=== PATIENT | female | born 1965 | race Hispanic/Latino ===

== ENCOUNTER 2021-06-18 09:11 | Outpatient (CLI) | payer MEDICAID ==
[2021-06-18 10:18] LABS: Blood Urea Nitrogen 12 mg/dL (7-17)
--- NOTE | 2021-06-18 12:23 | Cat Scan Report ---
CTA ABDOMEN, PELVIS, AND LOWER EXTREMITIES INDICATION: ABDOMINAL AORTIC ANEURYSM 80 ml omni 350 . TECHNIQUE: Axial CT images were obtained through the abdomen, pelvis and lower extremities after injection of IV contrast. 3 plane MIP reconstructions were produced. All CT scans at this location are performed usi ng CT dose reduction for PRISCILARA by means of automated exposure control. COMPARISON: None available. FINDINGS: CTA ABDOMEN: Abdominal Aorta: There is mild mural plaque throughout the infrarenal abdominal aorta. On axial image 191, transverse dimensions of the infrarenal abdominal aorta are 2.5 (AP) by 2.7 cm. Just below this , there is somewhat focal outpouching along the right anterolateral aspect of the aorta as seen on ax ial image 201). There is moderate to high-grade stenosis at the bifurcation (axial image 213). Celiac Artery: No significant abnormality. Superior Mesenteric Artery: No significant abnormality. Right Renal Artery: There is high-grade stenosis at the origin of the right renal artery (axial image 142). Left Renal Artery: No significant abnormality. Inferior Mesenteric Artery: Chronically thrombosed. CTA PELVIS: RIGHT: Common Iliac Artery: Advanced atherosclerotic disease with moderate narrowing and chronic focal disse ction (axial image 234). Internal Iliac Artery: Moderate atherosclerotic disease External Iliac Artery: No significant abnormality. LEFT: Common Iliac Artery: Moderate atherosclerotic disease with tiny chronic focal dissection on image 220 . Internal Iliac Artery: Moderate atherosclerotic disease. External Iliac Artery: No significant abnormality. CTA LOWER EXTREMITIES: RIGHT LOWER EXTREMITY: Common Femoral Artery: Mild to moderate atherosclerotic disease. Superficial Femoral Artery: Chronically thrombosed throughout. Profunda Femoral Artery: No significant abnormality. Popliteal Artery: Chronically thrombosed proximally with reconstitution in the midportion. Anterior Tibial Artery: No significant abnormality. Tibioperoneal Trunk: No significant abnormality. Posterior Tibial Artery: No significant abnormality. Peroneal Artery: No significant abnormality. Ankle runoff: Three vessel. LEFT LOWER EXTREMITY: Common Femoral Artery: Moderate atherosclerotic disease. Superficial Femoral Artery: Chronically thrombosed throughout. Profunda Femoral Artery: No significant abnormality. Popliteal Artery: Reconstituted at its origin. Anterior Tibial Artery: No significant abnormality. Tibioperoneal Trunk: No significant abnormality. Posterior Tibial Artery: No significant abnormality. Peroneal Artery: No significant abnormality. Ankle runoff: Three vessel. NONTARGET STRUCTURES: LUNG BASES: There is a 5 mm nodule in the subpleural anterior right middle lobe on axial image 26. ABDOMEN:There is a 3.2 cm hypodense lesion in the left abdomen which appears to be adrenal in etiolog y (axial image 113). There is a fat-containing umbilical hernia. PELVIS:No significant abnormality. LOWER EXTREMITIES:No significant abnormality. SKELETAL: No significant abnormality. ADDITIONAL FINDINGS: None. IMPRESSION: 1. There is moderate atherosclerotic disease and mild ectasia of the infrarenal abdominal aorta. Just below the area of ectasia, there is focal, chronic outpouching along the right anterolateral aspect of the aorta which may be a small chronic focal dissection. Bifurcation, there is moderate to high-gr tyrone stenosis. 2. Atherosclerotic disease is noted within the bilateral common iliac arterial trees with moderate at herosclerotic narrowing and areas of chronic dissection at the bilateral common iliacs as above. 3. 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 4. High-grade stenosis at the origin of the main right renal artery. 5. 3.2 cm hypodense lesion in the left abdomen appears to be adrenal in etiology. This may be an syl daniel but is nonspecific. 6. Single incidental pulmonary nodule(s) in the right middle lobe measuring 5 mm with solid character istics. - Recommendation according to Fleischner Society 2017 Guidelines: Low Risk Patient: No routine follow -up; High Risk Patient: Optional CT at 12 months. Signer Name: Raymon Miller MD Signed: 06/18/2021 12:19 PM Workstation Name: [id number]
== END 2021-06-18 09:12 | disposition home or self-care (01) ==
LOC: CT 09:11
PROVIDERS: ATTEND Internal Medicine
DX: I70.213 Atherosclerosis of native arteries of extremities with intermittent claudication, bilateral legs (principal); I71.4 Abdominal aortic aneurysm, without rupture; I70.8 Atherosclerosis of other arteries; I65.23 Occlusion and stenosis of bilateral carotid arteries; R91.1 Solitary pulmonary nodule; I77.811 Abdominal aortic ectasia
CPT/HCPCS: 36415; 75635; 82565; 84520; Q9967

== ENCOUNTER 2021-07-27 08:04 | Day surgery (SDC) | payer MEDICAID ==
[2021-07-27] MEDS ORDERED: SODIUM CHLORIDE 0.9% 500 ML 500 ML IV SCH (09:00)
[2021-07-27 09:47] LABS: BUN/Creatinine Ratio 18; Blood Urea Nitrogen 11 mg/dL (7-17); Calcium 10.2 mg/dL (8.4-10.2); Hemolysis Index 11; INR 0.91 (0.87-1.13)
[2021-07-27 09:48] LABS: Partial Thromboplastin Time 31.2 Sec. (24.2-36.6)
[2021-07-27 10:00] LABS: Hematocrit 40.8 % (30.3-42.9); Hemoglobin 13.6 gm/dl (10.1-14.3); Mean Corpuscular HGB Conc 33 % (30-34); Mean Corpuscular Volume 91 fl (79-97); Platelet Count 440 K/mm3 (140-440); Red Blood Count 4.51 M/mm3 (3.65-5.03); Red Cell Distribution Width 14.6 % (13.2-15.2)
[2021-07-27] MEDS ORDERED: HEPARIN/NS 5000 UNIT/500ML 1,000 ML IR ONE (11:10)
[2021-07-27] MEDS ORDERED: LIDOCAINE (2%) 20 MG/1 ML VIAL 20 ML MDV INFILTRATI ONE ×2 (11:10→12:13)
[2021-07-27] MEDS ORDERED: ceFAZolin/Water 2 GM/20 ML 2 GM/20 ML SYRINGE IV ONE (11:34)
[2021-07-27] MEDS: fentaNYL 100 MCG/2 ML INJ ONE ×5 (11:35→13:30)
[2021-07-27] MEDS: MIDAZOLAM 2 MG/2 ML INJ ONE ×5 (11:35→13:30)
[2021-07-27] MEDS ORDERED: VERAPAMIL 5 MG/2 ML INJ ONE (12:03)
[2021-07-27] MEDS ORDERED: NITROGLYCERIN SYRINGE 3 ML ONE (12:04)
[2021-07-27] MEDS: HEPARIN 10,000 UNITS/10 ML VIAL ONE ×3 (12:10→12:55)
[2021-07-27] MEDS ORDERED: SODIUM CHLORIDE 0.9% 1000 ML 1,000 ML ONE (12:26)
[2021-07-27] MEDS: diphenhydrAMINE 50 MG/ML VIAL ONE ×2 (12:38→12:51)
[2021-07-27] MEDS ORDERED: ONDANSETRON 4 MG/2 ML INJ ONE (14:05)
[2021-07-27] MEDS ORDERED: HYDROcodone/ACETAMINOPHEN 5-325 MG TAB PO NR (14:11)
[2021-07-27] MEDS ORDERED: ONDANSETRON 4 MG/2 ML INJ IV PRN (14:30)
[2021-07-27] MEDS ORDERED: CLOPIDOGREL 300 MG TAB ONE (14:49)
[2021-07-27] MEDS ORDERED: CLOPIDOGREL 300 MG TAB PO ONE (14:51)
--- NOTE | 2021-07-27 14:54 | Short Stay Summary ---
Short Stay Documentation Date of service: 07/27/21 - History H&P: obtained from office - Allergies and Medications Current Medications: Allergies aspirin Allergy (Verified 07/27/21 11:29) UPSET STOMACH Sulfa (Sulfonamide Antibiotics) Allergy (Verified 07/27/21 11:29) Hives Active Medications Hydrocodone Bitart/Acetaminophen (Hydrocodone/Acetaminophen 5-325 Mg Tab) 1 each PO ONCE NR Stop: 07/27/21 15:00 Sodium Chloride (Nacl 0.9% 500 Ml) 500 mls @ 50 mls/hr IV DIRECT MILLIE Last Admin: 07/27/21 10:45 Dose: 50 mls/hr Documented by: Ondansetron HCl (Ondansetron 4 Mg/2 Ml Inj) 4 mg IV Q4H PRN PRN Reason: Nausea And Vomiting Last Admin: 07/27/21 14:10 Dose: 4 mg Documented by: - Brief post op/procedure progress note Date of procedure: 07/27/21 Pre-op diagnosis: PVD with Bilateral Lower Extremity Pain Post-op diagnosis: same Procedure: 1. Ultrasound Guided Access Right Common Femoral Artery 2. Diagnostic Aortogram (No Previous Films for Comparison) 3. Diagnostic Left Lower Extremity Angiogram (No Previous Films for Comparison) 4. Ultrasound Guided Access Left Posterior Tibial Artery 5. Atherectomy with Angioplasty of Left SFA and Popliteal Artery with 2.4/3.4 JetStream Atherectomy Catheter, 5.0 x 200 Angiosculpt Balloon, and 5.0 x 150 IN.PACT Drug-Coated Balloon (x3) 6. Angioplasty of Left External Ilioac Artery with 8 x 100 [place] Balloon 7. Angioplasty of Letf Common Iliac Artery with 8 x 100 [place] Balloon 8. Closure of Right Femoral Arteriotomy with Pro-[place] Closure Device 9. Radiologic Supervision with Interpretation 10. Monitored Moderate Sedation (Total Anesthesia Time: 111 Minutes) Anesthesia: local, other (Mointored Moderate Sedation) Surgeon: BRENDA RAPHAEL Estimated blood loss: minimal Pathology: none Condition: stable - Disposition Condition at discharge: Good Disposition: 01 HOME / SELF CARE / HOMELESS Short Stay Discharge Plan Activity: other (No strenuous activity for 24 hours) Wound: remove dressing (In 24 hours), other (Okay to shower and wash the wounds with soap and water but do not soak the wounds in water fro 2 weeks) Follow up with: BRENDA RAPHAEL MD [Staff Physician] - 14 Days Prescriptions: Clopidogrel [Plavix] 75 mg PO QDAY #90 tablet
--- NOTE | 2021-07-27 14:59 | Operative Report ---
Operative Report Operative Report: Date of Procedure: 07/27/2021 Pre-operative Diagnosis: Peripheral Vascular Disease with Bilateral Lower Extrem ity Claudication Post-operative Diagnosis: Same Procedure(s): 1. Ultrasound Guided Access Right Common Femoral Artery 2. Diagnostic Aortogram (No Previous Films for Comparison) 3. Diagnostic Left Lower Extremity Angiogram (No Previous Films for Comparison) 4. Ultrasound Guided Access Left Posterior Tibial Artery 5. Atherectomy with Angioplasty of Left SFA and Popliteal Artery with 2.4/3.4 JetStream Atherectomy Catheter, 5.0 x 200 Angiosculpt Balloon, and 5.0 x 150 IN.PACT Drug-Coated Balloon (x3) 6. Angioplasty of Left External Iliac Artery with 8 x 100 [place] Balloon 7. Angioplasty of Left Common Iliac Artery with 8 x 100 [place] Balloon 8. Closure of Right Femoral Arteriotomy with Pro-[place] Closure Device 9. Radiologic Supervision with Interpretation 10. Monitored Moderate Sedation (Total Anesthesia Time: 111 Minutes) Surgeon: Cristóbal Mercedes M.D. Budget Engineer: [place] Anesthesia: Local/Monitored Moderate Sedation EBL: Minimal Counts: Correct Complications: None Condition: Stable Specimen: None Indication: Patient is a 55-year-old female with a history of tobacco abuse, rheumatoid arthritis, and Raynaud's disease who presented with complaints of short distance claudication. She had a CTA with bilateral lower extremity runoff that demonstrated severe aortoiliac occlusive disease as well as a penetrating ulcer of the distal aorta. Additionally she had bilateral SFA occlusions. She is in need of a diagnostic angiogram with possible intervention to help with her symptoms. She has been given the risk, benefits, and alternative procedures and consented to the procedure. Angiographic Findings: Diagnostic aortogram revealed aneurysmal dilatation of the distal aorta. The diagnostic left lower extremity angiogram revealed approximately 75% stenosis of the common iliac artery. The hypogastric artery was patent without significant flow-limiting stenosis. There was approximately 75 to 80% stenosis of the external iliac artery. The common femoral artery was patent without evidence of flow-limiting stenosis. The profunda artery was patent without evidence of flow-limiting stenosis. The SFA occluded shortly after its origin with reconstitution at the origin of the popliteal artery. There was approximately 75% stenosis in the popliteal artery at the level of the knee and the remainder the popliteal artery below the knee was patent without significant flow-limiting stenosis. The patient had three-vessel runoff and all vessels appeared to be patent without significant flow-limiting stenosis. After intervention the common iliac artery and external iliac artery were patent with less than 15% residual stenosis. The SFA and popliteal artery were patent with less than 10% residual stenosis. Description of Procedure: The patient was brought to the [facility] and laid in supine position. After timeout was performed her right groin was prepped and draped in normal sterile fashion. Ultrasound was used to identify the the right common femoral artery and confirm patency. Once patency was confirmed the overlying skin and soft tissue was anesthetized with lidocaine. An 11 blade was used to make a small stab incision and then a curved hemostat was used to bluntly dissect down to the anterior surface of the right common femoral artery under ultrasound guidance. A 21-gauge micropuncture needle was used with ultrasound guidance to enter the right common femoral artery and a 0.018 micropuncture wire was advanced into the artery. The needle was removed and a micropuncture sheath was placed by Seldinger technique. The inner dilator and wire were removed and a 0.035 Bentson wire was advanced to the aorta. The micropuncture sheath was exchanged for 5 Brazilian sheath by Seldinger technique. An Omni Flush catheter was advanced into the aorta and after removing the wire diagnostic aortogram was performed with the previously described findings. I reinserted the Bentson wire and advanced the catheter wire up and over the bifurcation and performed a diagnostic left lower extremity angiogram with the previously described findings. I advanced the Bentson wire to the profunda artery and then exchanged the 5 Brazilian sheath for a 7 Brazilian 45 cm destination sheath by Seldinger technique. I then systemically heparinized the patient with 4000 units of heparin IV. I then used ultrasound to identify the left posterior tibial artery and used lidocaine to anesthetize the skin and soft tissue overlying the artery. I used a 21-gauge micropuncture needle with ultrasound guidance to access the artery in retrograde fashion and then advanced a 0.018 micropuncture wire into the artery. I then placed a 6 Brazilian glide slender sheath into the artery and then injected a radial cocktail into the artery to minimize spasm. I then used a Navicross catheter and 0.018 Gladius Wire and was able to advance the wire and catheter through the occluded SFA and reenter in the left common femoral artery. I then was able to use the catheter and wire to cannulate the 7 Brazilian sheath and advanced the catheter and wire out of the right femoral arteriotomy and grabbed the wire. I then remove the Navicross catheter and advanced it antegra de over the wire and into the distal posterior tibial artery. I removed the Gladius Wire and advanced the 0.014 Thruway Wire into the distal posterior tibial artery and then used a 2.4/3.4 Jetstream Atherectomy Catheter with both blades down and blades up to perform atherectomy of the SFA and proximal mid popliteal artery. After performing atherectomy I used a 5.0 x 200 Angiosculpt Balloon to perform angioplasty of the SFA and popliteal artery followed by angioplasty of both the SFA and popliteal artery with 5.0 x 150 IN.PACT Drug- Coated Balloons (x3). This resulted in less than 10% residual stenosis throughout both the SFA and popliteal arteries. I then exchanged my Thruway wire for the Bentson wire and performed a low pressure inflation of both the external iliac artery and common iliac artery with an 8 x 10 [place] Balloon. The maximum pressure with an external iliac artery as well as the common iliac artery was 2 danni. This resulted in less than 15% residual stenosis within both vessels. At that point I pulled the sheath back into the right external iliac artery and advanced the wire into the aorta. I then used a Pro-glide closure device to close the right femoral arteriotomy after removing the sheath. A sterile dressing was then applied to the right groin entry site. The sheath was then removed from the left posterior tibial artery and manual pressure was held to achieve hemostasis. Once hemostasis was achieved a sterile dressing was applied and the patient was transported to the recovery area in stable condition.
[2021-07-27 17:09] VITALS: BP 105/75
== END 2021-07-27 16:00 | disposition home or self-care (01) ==
LOC: CATHLABREC 08:04
PROVIDERS: ATTEND Surgery Vascular Surgery
DX: I70.203 Unspecified atherosclerosis of native arteries of extremities, bilateral legs (principal); I10 Essential (primary) hypertension; E78.00 Pure hypercholesterolemia, unspecified; E03.9 Hypothyroidism, unspecified; K21.9 Gastro-esophageal reflux disease without esophagitis; M19.90 Unspecified osteoarthritis, unspecified site; F17.210 Nicotine dependence, cigarettes, uncomplicated; Z79.899 Other long term (current) drug therapy; Z98.890 Other specified postprocedural states; Z88.2 Allergy status to sulfonamides; Z88.8 Allergy status to other drugs, medicaments and biological substances
CPT/HCPCS: 36415; 37220; 37222; 37225; 75625; 75710; 76937; 80048; 85025; 85610; 85730; 99156; 99157; C1724; C1725; C1760; C1769; C1887; C1894; C2623; J0690; J1200; J1644; J2250; J2405; J3010; J7030; J7040; Q9967

== ENCOUNTER 2021-08-10 07:46 | Day surgery (SDC) | payer MEDICAID ==
[2021-08-10] MEDS ORDERED: HEPARIN/NS 5000 UNIT/500ML 1,000 ML IR ONE ×2 (08:26→10:05)
[2021-08-10] MEDS: fentaNYL 100 MCG/2 ML INJ ONE ×9 (08:28→12:37)
[2021-08-10] MEDS: MIDAZOLAM 2 MG/2 ML INJ ONE ×8 (08:29→12:00)
[2021-08-10] MEDS: LIDOCAINE (2%) 20 MG/1 ML VIAL 20 ML MDV INFILTRATI ONE ×4 (08:29→11:46)
[2021-08-10 08:30] LABS: Basophils # (Auto) 0.2 K/mm3 (0.0-0.1); Basophils % (Auto) 1.5 % (0.0-1.8); Eosinophils # (Auto) 0.2 K/mm3 (0.0-0.4); Eosinophils % (Auto) 1.4 % (0.0-4.3); Hematocrit 36.5 % (30.3-42.9); Hemoglobin 12.2 gm/dl (10.1-14.3); Lymphocytes # (Auto) 4.5 K/mm3 (1.2-5.4); Lymphocytes % (Auto) 33.5 % (13.4-35.0); Mean Corpuscular HGB Conc 34 % (30-34); Mean Corpuscular Volume 89 fl (79-97); Monocytes # (Auto) 0.9 K/mm3 (0.0-0.8); Monocytes % (Auto) 6.4 % (0.0-7.3); Platelet Count 529 K/mm3 (140-440); Red Blood Count 4.08 M/mm3 (3.65-5.03); Red Cell Distribution Width 13.7 % (13.2-15.2)
[2021-08-10 08:43] LABS: Blood Urea Nitrogen 14 mg/dL (7-17); Calcium 10.1 mg/dL (8.4-10.2); Hemolysis Index 1
[2021-08-10 08:44] LABS: BUN/Creatinine Ratio 20
[2021-08-10] MEDS ORDERED: SODIUM CHLORIDE 0.9% 500 ML 500 ML IV SCH (09:00)
[2021-08-10] MEDS ORDERED: ceFAZolin/Water 2 GM/20 ML 2 GM/20 ML SYRINGE IV ONE (09:15)
[2021-08-10] MEDS: diphenhydrAMINE 50 MG/ML VIAL ONE ×2 (09:28→09:54)
[2021-08-10 09:36] LABS: INR 0.93 (0.87-1.13)
[2021-08-10] MEDS: HEPARIN 10,000 UNITS/10 ML VIAL ONE ×2 (09:50→10:27)
[2021-08-10] MEDS ORDERED: HEPARIN 10,000 UNITS/10 ML VIAL ONE (10:05)
[2021-08-10] MEDS: VERAPAMIL 5 MG/2 ML INJ ONE ×2 (10:14→10:27)
[2021-08-10] MEDS: NITROGLYCERIN SYRINGE 3 ML ONE ×2 (10:15→10:27)
[2021-08-10] MEDS ORDERED: WATER FOR INJ Sterile (PF) 10 ML ONE (10:41)
[2021-08-10] MEDS ORDERED: ALTEPLASE 2 MG INJ ONE (10:42)
[2021-08-10] MEDS ORDERED: SODIUM CHLORIDE 0.9% 1000 ML 1,000 ML ONE (10:46)
[2021-08-10] MEDS ORDERED: NITROGLYCERIN SYRINGE 3 ML ONE (10:46)
[2021-08-10] MEDS ORDERED: SODIUM CHLORIDE 0.9% 500 ML 500 ML ONE (11:48)
[2021-08-10] MEDS ORDERED: oxyCODONE /ACETAMINOPHEN 5-325MG TAB ONE (13:14)
[2021-08-10] MEDS ORDERED: oxyCODONE /ACETAMINOPHEN 5-325MG TAB PO ONE (13:15)
--- NOTE | 2021-08-10 13:38 | Short Stay Summary ---
Short Stay Documentation Date of service: 08/10/21 Narrative H&P: See Short stay record - Allergies and Medications Current Medications: Allergies aspirin Allergy (Verified 07/27/21 11:29) UPSET STOMACH Sulfa (Sulfonamide Antibiotics) Allergy (Verified 07/27/21 11:29) Hives Home Medications Medication Instructions Recorded Confirmed Last Taken Type Clopidogrel [Plavix] 75 mg PO QDAY #90 tablet 07/27/21 08/10/21 08/09/21 Rx 75 mg Adalimumab [Humira(Cf) Pen] 40 mg SQ Q2W 08/10/21 08/10/21 08/04/21 History 40 mg Ergocalciferol (Vitamin D2) 1 cap PO QWEEK 08/10/21 08/10/21 08/07/21 History [Drisdol] 1 cap Fenofibrate,Micronized 67 mg PO DAILY 08/10/21 08/10/21 08/09/21 History [Fenofibrate] 67 mg Levothyroxine [Synthroid] 50 mcg PO DAILY 08/10/21 08/10/21 08/09/21 History 50 mcg Pantoprazole [Protonix TAB] 20 mg PO DAILY 08/10/21 08/10/21 08/09/21 History 20 mg Prednisone [predniSONE (John) ER 5 mg PO HS 08/10/21 08/10/21 08/09/21 History TAB] 5 mg amLODIPine 10 mg PO DAILY 08/10/21 08/10/21 08/09/21 History 10 mg cilostazoL [Pletal] 100 mg PO DAILY 08/10/21 08/10/21 08/09/21 History 100 mg lisinopriL [Lisinopril] 20 mg PO DAILY 08/10/21 08/10/21 08/09/21 History 20 mg oxyCODONE /ACETAMINOPHEN [Percocet 1 tab PO PRN PRN 08/10/21 08/10/21 08/07/21 History 5/325 mg] 1 tab Active Medications Sodium Chloride (Nacl 0.9% 500 Ml) 500 mls @ 50 mls/hr IV DIRECT MILLIE Last Admin: 08/10/21 08:31 Dose: 1,000 mls Documented by: Oxycodone/Acetaminophen (Oxycodone /Acetaminophen 5-325mg Tab) 1 tab PO ONCE ONE Stop: 08/10/21 13:16 - Brief post op/procedure progress note Date of procedure: 08/10/21 Pre-op diagnosis: Peripheral Vascular Disease with Right Lower Extremity Claudication Post-op diagnosis: same Procedure: 1. Ultrasound-Guided Access Left Common Femoral Artery 2. Ultrasound-Guided Access Right Common Femoral Artery 3. Ultrasound-Guided Access Right Anterior Tibial Artery 4. Diagnostic Right Lower Extremity Angiogram 5. Angioplasty of Right Anterior Tibial Artery with 3.0 x 220 [place] Balloon 6. Atherectomy with Angioplasty of Right SFA and Popliteal Artery With 2.4/3.4 Jetstream Atherectomy Catheter, 5.0 x 200 Angiosculpt Balloon, and 5.0 x 150 IN.PACT Drug-Coated Balloons (x3) 7. Angioplasty of Right External Iliac Artery with 7.0 x 80 IN.PACT Drug-Coated Balloon 8. Angioplasty and Stent of Infrarenal Aorta with an 11 x 59 [place] VBX Balloon Expandable Stent Graft and Postdilated with a 16 x 40 [place] Balloon 9. Angioplasty and Stent of the Right Common Iliac Artery with an 8 x 79 [place] VBX Balloon Expandable Stent Graft 10. Angioplasty and Stent of the Left Common Iliac Artery with an 8 x 79 [place] VBX Balloon Expandable Stent Graft 11. Closure of Right Femoral Arteriotomy with Pro-[place] Closure Device 12. Closure of Left Femoral Arteriotomy with Pro-[place] Closure Device 13. Radiologic Supervision with Interpretation 14. Monitored Moderate Sedation (Total Anesthesia Time: 132 Minutes) Anesthesia: local, other (Monitored Moderate Sedation) Surgeon: BRENDA RAPHAEL Estimated blood loss: minimal Pathology: none Condition: stable - Disposition Condition at discharge: Good Disposition: 01 HOME / SELF CARE / HOMELESS Short Stay Discharge Plan Activity: other (No strenuous activity for 24 hours) Wound: remove dressing (24-hour), other (Okay to shower and wash the wounds with soap and water but do not soak in water for 2 weeks.) Follow up with: BRENDA RAPHAEL MD [Staff Physician] - 14 Days Forms: Post Arteriogram Instruct Prescriptions: Oxycodone HCl/Acetaminophen [Percocet 7.5/325 mg] 1 each PO Q6HR PRN #30 tablet PRN Reason: Pain
--- NOTE | 2021-08-10 13:47 | Operative Report ---
Operative Report Operative Report: Date of Procedure: 08/10/2021 Pre-operative Diagnosis: Peripheral Vascular Disease with Right Lower Extremity Claudication Post-operative Diagnosis: Same Procedure(s): 1. Ultrasound-Guided Access Left Common Femoral Artery 2. Ultrasound-Guided Access Right Common Femoral Artery 3. Ultrasound-Guided Access Right Anterior Tibial Artery 4. Diagnostic Right Lower Extremity Angiogram 5. Angioplasty of Right Anterior Tibial Artery with 3.0 x 200 Charles Balloon 6. Atherectomy with Angioplasty of Right SFA and Popliteal Artery With 2.4/3.4 Jetstream Atherectomy Catheter, 5.0 x 200 Angiosculpt Balloon, and 5.0 x 150 IN.PACT Drug-Coated Balloons (x3) 7. Angioplasty of Right External Iliac Artery with 7.0 x 80 IN.PACT Drug-Coated Balloon 8. Angioplasty and Stent of Infrarenal Aorta with an 11 x 59 Viabahn VBX Balloon Expandable Stent Graft and Postdilated with a 16 x 40 Crane Balloon 9. Angioplasty and Stent of the Right Common Iliac Artery with an 8 x 79 Viabahn VBX Balloon Expandable Stent Graft 10. Angioplasty and Stent of the Left Common Iliac Artery with an 8 x 79 Viabahn VBX Balloon Expandable Stent Graft 11. Closure of Right Femoral Arteriotomy with Pro-[place] Closure Device 12. Closure of Left Femoral Arteriotomy with Pro-[place] Closure Device 13. Radiologic Supervision with Interpretation 14. Monitored Moderate Sedation (Total Anesthesia Time: 132 Minutes) Surgeon: Cristóbal Mercedes M.D. Car Head Liner Installer: None Anesthesia: Local/Monitored Moderate Sedation Total Anesthesia Time: 132 Minutes EBL: Minimal Counts: Correct Complications: None Condition: Stable Specimen: None Indication: The patient is a 55-year-old female with a history of peripheral vascular disease and bilateral lower extremity claudication. She has had intervention of her left lower extremity and now returns for intervention of her right lower extremity. 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 She is in need of management of those lesions. She has been given the risk, benefits, and alternative procedures and has consented to the procedures. Angiographic Findings: The aortogram revealed a penetrating ulcer with aneurysmal dilatation of the distal aorta just proximal to the bifurcation. The right lower extremity angiogram revealed an ulcerated plaque with a dissection in the proximal right common iliac artery and approximately 50% stenosis of the entire artery. The external iliac artery had approximately 60% stenosis throughout the entire artery. The common femoral artery was patent without evidence of flow-limiting stenosis. The profunda artery was patent without evidence of flow-limiting stenosis. The SFA was occluded just after his origin and there was reconstitution of flow in the popliteal artery just behind the knee. The below- knee popliteal artery was patent without evidence of flow-limiting stenosis. The patient had three-vessel runoff. Anterior tibial artery had multiple segments of stenosis ranging from 50 to 75%. The peroneal artery appeared patent without significant flow-limiting stenosis. The posterior tibial artery appeared patent without significant flow-limiting stenosis. After intervention the anterior tibial artery was patent with less than 10% residual stenosis. The SFA and popliteal artery were patent with less than 15% residual stenosis. There were several areas with small dissections that were nonflow limiting. The right external iliac artery was patent with less than 10% residual stenosis. The right common iliac artery was patent with less than 10% residual stenosis. The left common iliac artery was patent with less than 10% residual stenosis. The artery was patent and the stent graft was well approximated to the aortic wall however there was still flow noted within the aneurysmal portion of the penetrating ulcer however the flow was sluggish and likely to thrombose after the patient's anticoagulation wears off. Description of Procedure: The patient was brought to the [employer] and laid in supine position. After a timeout was performed bilateral groins were prepped and draped in normal sterile fashion. Ultrasound was used to identify the left common femoral artery and confirm patency. Once patency was confirmed the overlying skin and soft tissue was anesthetized with lidocaine. An 11 blade was used to make a small stab incision and then a curved hemostat was used to bluntly dissect down to the anterior surface of the left common femoral artery. A 21-gauge micropuncture needle was used ultrasound guidance in the left common femoral artery and a 0.018 micropuncture wire was advanced to the artery. The needle was removed and a micropuncture sheath was placed by Seldinger technique. The inner dilator and wire were removed and a 0.035 Bentson wire was advanced to the aorta. The micropuncture sheath was exchanged for 5 [place] sheath by Seldinger technique. An Omni Flush catheter was advanced into the aorta and a diagnostic aortogram was performed. The Omni Flush catheter and a 0.035 glide advantage wire were advanced up and over the bifurcation and a diagnostic right lower extremity angiogram was performed the previously described findings. I advanced the advantage wire into the profunda artery and then exchanged the 5 [place] sheath for a 7 [place] 45 cm destination sheath and at this time I systemically heparini zed the patient with 5000 as of heparin IV. I then used a Navicross catheter and a 0.018 V 18 wire and was able to advance the wire and catheter into the mid SFA. I exchanged the V 18 wire for a 0.018 Gladius wire and was able to advance the wire into the mid popliteal artery but was initially unable to reenter the below-knee popliteal artery. I decided to gain retrograde access. I initially attempted to gain access into the posterior tibial artery however this was unsuccessful so I used ultrasound to identify the anterior tibial artery just above the ankle and anesthetized the skin and soft tissue lidocaine. I used a 21-gauge micropuncture needle with ultrasound guidance into the artery in retrograde fashion and advanced a 0.018 micropuncture wire into the artery. I then remove the needle and placed a micropuncture sheath by Seldinger technique. I remove the wire and inner dilator and placed a short 0.035 J-wire into the artery. I exchanged the micropuncture sheath for a 4 [place] sheath by Seldinger technique. At this point I injected a radial cocktail to reduce spasm and then advanced the Navicross catheter with a V 18 wire into the patent portion of the popliteal artery and was able to advance the wire and catheter into the mid SFA. I was unable to connect the wire and catheter with the antegrade wire and catheter however after pulling the Navicross back I was able to advance a V 18 wire with a 0.018 Trailblazer from the antegrade puncture into the below-knee popliteal artery which was confirmed by angiogram. The angiogram also revealed thrombus within the peroneal artery and posterior tibial artery. I injected a total of 4 mg of TPA as well as 400 mcg of nitroglycerin and allow this to dwell for approximately 5 minutes. While that was dwelling in those vessels I remove the Navicross catheter and performed angioplasty of the areas of stenosis within the anterior tibial artery using a 3.0 x 200 Charles Balloon with a result of less than 10% residual stenosis. The angiogram also revealed that the thrombus and spasm within the peroneal and posterior tibial artery have resolved with administration of TPA and nitroglycerin. I removed the V 18 wire from the trailblazer and advanced a 0.014 Thruway wire into the peroneal artery. I then performed atherectomy of the SFA and proximal popliteal artery using the 2.4/3.4 Jetstream Atherectomy Catheter. I was unable to advance the catheter past the proximal popliteal artery so I used a 3.5 x 220 Nanocross balloon to predilate the remaining popliteal artery and then advanced a 5.0 x 200 Angiosculpt balloon into the popliteal artery and performed angioplasty of the popliteal artery as well as the SFA. I followed this by performing angioplasty of the previously occluded segments of popliteal artery and SFA with 5.0 x 150 IN.PACT Drug-Coated Balloons (x3) with a result of less than 15% residual stenosis with several areas that has small dissections that were nonflow-limiting. I pulled the sh eath back into the right common iliac artery and performed angioplasty of the external iliac artery with a 7.0 x 80 IN.PACT Drug-Coated Balloon with a result of less than 10% residual stenosis. I then pulled the sheath back into the left external iliac artery and advanced an advantage wire into the aorta. I exchanged the 7 [place] 45 cm destination sheath for an 8 [place] 23 cm sheath. I then used ultrasound to identify the right common femoral artery and used lidocaine to anesthetize the skin and overlying soft tissue. I made a small stab incision with an 11 blade and used a curved hemostat to bluntly dissect down to the anterior surface. I used an 18-gauge access needle with ultrasound guidance into the right common femoral artery and advanced a 0.035 Bentson wire into the aorta. I then placed a 7 [place] 23 cm sheath into the artery by Seldinger technique. I performed an aortogram through the 8 [place] sheath to determine the length and size of stent I wanted to place in the aorta. I decided to place an 11 x 59 Viabahn VBX Balloon Expandable Stent Graft into the distal abdominal aorta. I advanced the stent graft to position to the left femoral access and then deployed it. I postdilated the stent graft with a 16 x 40 Crane balloon and the follow-up angiogram revealed that it was well opposed to the aortic wall. I then decided to place 8 x 79 Viabahn VBX Balloon Expanda ble Stent Grafts in each common iliac artery. I exchanged my right common femoral sheath for an 8 x 11 cm sheath and then advanced 8 x 79 Viabahn VBX Balloon Expandable Stent Grafts into each common iliac artery respectively with approximately 2 cm of overlap into the aortic stent graft. The stent graft were deployed simultaneously to nominal pressure. A follow-up angiogram revealed an endoleak into the aneurysmal portion of the aorta so I used two 9 x 20 balloons that were advanced into each stent graft at the overlap into the aorta and inflated them to burst pressure. The final angiogram revealed continued flow into the sac however the flow was sluggish and it appeared that once the anticoagulation wore off this would likely thrombosed. Additionally both common iliac arteries were patent with less than 10% residual stenosis. At this point both femoral entry sites were closed with Pro-glide closure devices after removing the sheaths. The wounds were then dressed with sterile dressings. The right anterior tibial artery access site was controlled with manual pressure after removing the sheath and a sterile dressing was applied. The patient tolerated the procedure well and was transported to the recovery area in stable condition.
[2021-08-10 14:03] VITALS: BP 113/86
== END 2021-08-10 14:27 | disposition home or self-care (01) ==
LOC: CATHLABREC 07:46
PROVIDERS: ATTEND Surgery Vascular Surgery
DX: I70.211 Atherosclerosis of native arteries of extremities with intermittent claudication, right leg (principal); I10 Essential (primary) hypertension; E78.00 Pure hypercholesterolemia, unspecified; M19.90 Unspecified osteoarthritis, unspecified site; E03.9 Hypothyroidism, unspecified; K21.9 Gastro-esophageal reflux disease without esophagitis; F17.210 Nicotine dependence, cigarettes, uncomplicated; Z79.899 Other long term (current) drug therapy; Z88.2 Allergy status to sulfonamides; Z88.8 Allergy status to other drugs, medicaments and biological substances; Z98.890 Other specified postprocedural states
CPT/HCPCS: 36415; 37220; 37221; 37225; 37228; 37236; 75625; 75710; 76937; 80048; 85025; 85610; 85730; 99156; 99157; C1724; C1725; C1760; C1769; C1874; C1887; C1894; C2623; J0690; J1200; J1644; J2250; J2997; J3010; J7030; J7040; Q9967